=== PATIENT | female | born 1965 | race Caucasian/White ===

== ENCOUNTER 2020-02-12 08:47 | Emergency (ER) | payer OTHER ==
[~2020-02-12] VITALS: Ht 162.6 cm; Wt 66.4 kg
[2020-02-12 08:55] VITALS: Ht 162.6 cm; Wt 66.4 kg
[2020-02-12] MEDS ORDERED: PREMPRO (08:57)
[2020-02-12] MEDS ORDERED: PRILOSEC (08:58)
[2020-02-12] MEDS ORDERED: CRESTOR40 MG PO (08:58)
[2020-02-12] MEDS ORDERED: AVAPRO150 MG PO (08:58)
[2020-02-12] MEDS ORDERED: CENTRUM SILVER1 EAC3 PO (08:59)
[2020-02-12 09:45] LABS: BASOPHILS 0.2 % (0-2); EOSINOPHILS 2.4 % (0-7); HEMATOCRIT 45.7 % (36.0-48.0); HEMOGLOBIN 15.4 g/dL (12-16); IMMATURE GRANULOCYTES 0.3 % (0-5); LYMPHOCYTES 26.5 % (15-50); MCH 31.5 pg (26.0-34.0); MCHC 33.7 g/dL (31.0-37.0); MCV 93.5 fL (80.0-100.0); MONOCYTES 8.9 % (2-11); NEUTROPHILS 61.7 % (40-80); PLATELET COUNT 172 10x3/uL (130-400); RBC 4.89 10x6/uL (4.00-5.40); RDW 12.4 % (11.5-14.5); WBC 5.7 10x3/uL (4.8-10.8)
[2020-02-12 09:49] LABS: CALC OSMOLALITY 273 mosm/kg (275-300); CALCIUM 8.8 mg/dL (8.5-10.1); CARBON DIOXIDE 26.9 mmol/L (21.0-32.0); CHLORIDE - SERUM 101 mmol/L (98-107); CREATININE - SERUM 0.8 mg/dL (0.6-1.3); GLUCOSE 109 mg/dL (74-106); POTASSIUM - SERUM 3.8 mmol/L (3.5-5.1); SODIUM 136 mmol/L (136-145); UREA NITROGEN 16 mg/dL (7-18); eGFR NON AFRICAN AMERICAN 79 mL/min (90-120)
[2020-02-12 10:06] LABS: ALBUMIN 3.9 g/dL (3.4-5.0); ALKALINE PHOSPHATASE 63 U/L (30-120); ALT (SGPT) 33 U/L (10-68); BILIRUBIN - TOTAL 0.79 mg/dL (0.2-1.3); CKMB 1.7 U/L (0.0-3.6); CREATINE KINASE 105 UL (21-215); PROTEIN - SERUM 7.6 g/dL (6.4-8.2); TROPONIN-I < 0.017 ng/mL (0.000-0.060)
[2020-02-12 11:27] VITALS: BP 145/78
== END 2020-02-12 11:27 | disposition home or self-care (01) ==
LOC: D.ER 08:47
PROVIDERS: Emergency Medicine
DX: I10 Essential (primary) hypertension (principal)